=== PATIENT | female | born 1950 | race Two or more races ===

== ENCOUNTER 2017-07-08 06:13 | Observation (INO) | payer MEDICARE, BC ==
[2017-07-06 11:34] LABS: BASOPHILS % 0.3 % (0.0-1.0); HEMATOCRIT 35.9 % (34.2-44.1); HEMOGLOBIN 12.4 g/dL (12.0-16.0); LYMPHOCYTES # (AUTO) 2.6 (1.0-3.2); LYMPHOCYTES % 40.9 % (18.0-39.1); MEAN CORPUSCULAR HEMOGLOBIN 31.4 pg (28-32); MEAN CORPUSCULAR HGB CONC 34.5 g/dL (31-35); MEAN CORPUSCULAR VOLUME 90.9 fL (81-99); MONOCYTES # (AUTO) 0.6 (0.2-0.8); MONOCYTES % 9.9 % (4.4-11.3); NEUTROPHILS # (AUTO) 3.1 (2.1-6.9); NEUTROPHILS % 48.6 % (38.7-80.0); PLATELET COUNT 173 x10e3/uL (140-360); RED BLOOD COUNT 3.95 x10e6/uL (3.6-5.1); RED CELL DISTRIBUTION WIDTH 12.1 % (11.7-14.4)
[2017-07-06 11:50] LABS: INR 1.04; PROTHROMBIN TIME 12.8 seconds (11.9-14.5)
[2017-07-06 11:56] LABS: ANION GAP 12.5 mmol/L (8-16); BLOOD UREA NITROGEN 29 mg/dL (7-26); BUN/CREATININE RATIO 35 (6-25); CALCIUM 9.5 mg/dL (8.4-10.2); CARBON DIOXIDE 26 mmol/L (22-29); CHLORIDE 105 mmol/L (98-107); CREATININE, SERUM 0.83 mg/dL (0.57-1.11); EST GLOMERULAR FILTRATION RATE > 60 ML/MIN (60-); GLUCOSE 89 mg/dL (74-118); POTASSIUM 4.5 mmol/L (3.5-5.1); SODIUM 139 mmol/L (136-145)
--- NOTE | 2017-07-06 12:16 | Diagnostic Imaging Report ---
PROCEDURE:CHEST 2 VIEWS TECHNIQUE:PA and lateral chest INDICATION:Preoperative evaluation for cervical spine surgery. COMPARISON:None. FINDINGS: Lungs are clear and symmetrically inflated. No pleural effusion. Normal heart size, mediastinal contour pulmonary vasculature and skeleton. CONCLUSION: Normal chest. Dictated by: Renny Tellez M.D. on 07/06/2017 at 12:18 Electronically approved by: Renny Tellez M.D. on 07/06/2017 at 12:18
[~2017-07-08] VITALS: Ht 152.4 cm; Wt 62.6 kg
[~2017-07-08 06:13] MED LIST: ADVIL PO; ASPIRIN PO; TYLENOL PO
--- OUTSIDE RECORDS SUMMARY | 2017-07-08 06:16 | XMS REPORT ---
Author Author [facility] Address Unknown Phone Unavailable Care Team Providers Care Refrigerated Cargo Clerk Name Role Phone DESIREE ZAVALA Unavailable Unavailable Problems This patient has no known problems. Allergies, Adverse Reactions, Alerts This patient has no known allergies or adverse reactions. Medications This patient has no known medications. Results Test Description Test Time Test Comments Text Results Atomic Results Result Comments CHEST 2 VIEWS [place] [address] Patient Name: RAJAN LYNNE MR #: [id number] : 1950 Age/Sex: 67/F Req #: [id number] Adm Physician: Ordered by: DESIREE ZAVALA MD Report #: [id number] Location: OR Room/Bed: Procedure: [id number] DX/CHEST 2 VIEWS Exam Date: 07/06/17 Exam Time: 1147 REPORT STATUS: Signed PROCEDURE: CHEST 2 VIEWS TECHNIQUE: PA and lateral chest INDICATION: Preoperative evaluation for cervical spine surgery. COMPARISON: None. FINDINGS: Lungs are clear and symmetrically inflated. No pleural effusion. Normal heart size, mediastinal contour pulmonary vasculature and skeleton. CONCLUSION: Normal chest. Dictated by: Daphne Tellez M.D. on 07/06/2017 at 12: 18 Electronically approved by: Daphne Tellez M.D. on 07/06/2017 at 12:18 Dictated By: DAPHNE TELLEZ MD [id number] Transcribed By: ANNIE on 07/06/17 1218 COPY TO: DESIREE ZAVALA MD
[2017-07-08] MEDS ORDERED: CEFAZOLIN SOD 1 GM VIAL ONE ×2 (07:00→07:34)
[2017-07-08] MEDS ORDERED: THROMBIN FOR SOLN 5,000 UNIT VIAL ONE (07:22)
[2017-07-08] MEDS ORDERED: GELATIN SPONGE SZ 100 ONE (07:22)
[2017-07-08] MEDS ORDERED: BACITRACIN 50,000 UNIT VIAL ONE (07:22)
[2017-07-08] MEDS ORDERED: BUPIVACAINE 0.5%/EPI 30 ML SDV INJ ONE (07:22)
[2017-07-08] MEDS ORDERED: ACETAMINOPHEN 1000 MG/100 ML 100 ML IV ONE (07:29)
[2017-07-08] MEDS ORDERED: LIDOCAINE HCL (LTA) 4 ML SOLN ONE (07:29)
[2017-07-08] MEDS: LACTATED RINGER'S 1,000 ML IV SCH ×3 (09:43→21:36)
[2017-07-08] MEDS ORDERED: HYDROMORPHONE 2MG/ML INJ IV PRN (09:45)
[2017-07-08] MEDS ORDERED: ACETAMINOPHEN 325 MG TAB PO PRN (09:45)
[2017-07-08] MEDS ORDERED: CEPACOL SORE THROAT LOZENGES PO PRN (09:45)
[2017-07-08] MEDS ORDERED: MAGNESIUM/ALUMINUM/SIMETHICONE 30 ML UDC PO PRN (09:45)
[2017-07-08] MEDS ORDERED: CARISOPRODOL 350 MG TAB PO PRN (09:45)
[2017-07-08] MEDS ORDERED: MORPHINE SULFATE 5 MG/ML VIAL IM PRN (09:45)
[2017-07-08] MEDS ORDERED: ZOLPIDEM TARTRATE 5 MG TAB PO PRN (09:45)
[2017-07-08] MEDS ORDERED: PROMETHAZINE HCL (IM) 25 MG/ML VIAL IM PRN (09:45)
[2017-07-08] MEDS ORDERED: FENTANYL CITRATE/PF 100MCG/2 ML INJ ONE ×2 (10:07→18:52)
[2017-07-08] MEDS ORDERED: ONDANSETRON HCL 4 MG ORAL DISINTEGRATING TAB SL PRN (10:15)
[2017-07-08] MEDS: OXYCODONE/ACETAMINOPHEN 5-325 1 EACH TABLET PO PRN (11:15)
--- NOTE | 2017-07-08 11:15 | Operative Report ---
DATE OF PROCEDURE: July 08, 2017 PREOPERATIVE DIAGNOSIS: C5-6 and C6-7 spondylosis with radiculopathy, M50.120. POSTOPERATIVE DIAGNOSIS: C5-6 and C6-7 spondylosis with radiculopathy, M50.120. PROCEDURES: 1. C5-6 anterior cervical diskectomy, microsurgical osteophyte resection and allograft fusion, 71330. 2. C6-7 anterior cervical diskectomy, microsurgical osteophyte resection and allograft fusion, 37727. 3. Preparation of iliac crest allograft, 97525. 4. C5-6 and C6-7 anterior cervical plating with Synthes ZPN plate, 48933. ANESTHESIA: General. INDICATIONS: This patient is a woman who presents with C5-6 and C6-7 spondylosis and right-sided foraminal stenosis with right-sided cervical radiculopathy. She was taken to the operating room for a 2-level anterior cervical decompression and fusion. PROCEDURE: After the induction of anesthesia, the patient was placed on the operating table in supine position. The right side of the neck was prepped and draped in a sterile fashion. The fluoroscopic C-arm was positioned in cross-table lateral orientation. A small transverse incision was created on the right side of the neck superimposed on the C6 vertebral body as determined by fluoroscopy. The platysma was divided in line with the incision. A subplatysmal dissection was carried out. An avascular plane of dissection was developed medial to the sternocleidomastoid muscle and was followed medial to the carotid sheath to the anterior border the cervical spine. The deep cervical fascia was opened. The esophagus was retracted to the left. The attachments of the longus coli muscles to the anterolateral aspects of the vertebral bodies of C5, C6 and C7 were divided. The anterior longitudinal ligament was resected. Ogden posts were inserted into C5 and C7. The Ogden distractor was used to distract both disk spaces. The anterior annuli of the disks were incised with a #11 blade, and the contents of both disks were thoroughly evacuated with angled curets and pituitary rongeurs. The posterior osteophytes were meticulously drilled with a 2-mm cutting bur on a high-speed drill until they were completely removed. The posterior annulus of the disk, herniated disk material and the posterior longitudinal ligament were resected layer by layer until the dura was fully exposed and decompressed. The medial aspects of uncinate processes were resected bilaterally to further expose and decompress the origins of the corresponding nerve roots. After satisfactory decompression had been achieved, the endplates were prepared for fusion. Two pieces of tricortical iliac crest allograft were cut to sizes and shapes of the disk spaces and were inserted into the disk spaces under distraction and fluoroscopic guidance. The distraction was released. The distraction posts were removed. A Synthes CSLP small-stature anterior cervical plate measuring 30 mm was selected and was affixed to the vertebral bodies of C5, C6 and C7 with 3 pairs of 14 x 4.35 mm screws. All screw holes were drilled and tapped under lateral fluoroscopic guidance. All screws were locked with the appropriate locking screws. An excellent construct was obtained. The wound was copiously irrigated with Bacitracin solution. Meticulous hemostasis was secured. Retractor was removed. The platysma was closed with 3-0 Vicryl sutures. The skin was closed 4-0 Monocryl sutures in subcuticular fashion. Steri-Strips and dressing were applied. The patient was awakened and extubated and taken to the postanesthesia care unit in stable condition. No intraoperative complications were encountered. Estimated blood loss was 20 mL. Job#: [id number]
[2017-07-08 11:32] VITALS: BP 147/74
[2017-07-08 11:43] VITALS: BP 147/74
[2017-07-08] MEDS ORDERED: CEFAZOLIN SOD 1 GM/NS 50ML 50 ML IV SCH (14:00)
[2017-07-08 15:43] VITALS: BP 135/74
[2017-07-08] MEDS: CEFAZOLIN SOD 1 GM VIAL IV SCH ×2 (16:21→21:36)
[2017-07-08 16:53] VITALS: BP 135/74
[2017-07-08] MEDS: PROMETHAZINE 25MG/ NS 50ML (IV) IV PRN ×2 (18:10→22:41)
[2017-07-08] MEDS ORDERED: NEOSTIGMINE 5 MG/5ML SYR ONE (18:12)
[2017-07-08] MEDS ORDERED: SEVOFLURANE INHAL SOLN 250 ML PEN BTL ONE (18:12)
[2017-07-08] MEDS ORDERED: EPHEDRINE SULFATE INJ 50 MG/10 ML SYR ONE (18:12)
[2017-07-08] MEDS ORDERED: ACETAMINOPHEN 1000 MG/100 ML IV ONE (18:12)
[2017-07-08] MEDS ORDERED: DEXAMETHASONE SOD PHOS INJ 4 MG/ML VIAL ONE (18:12)
[2017-07-08] MEDS ORDERED: LIDOCAINE HCL 2% JELLY 5 ML TUBE ONE (18:12)
[2017-07-08] MEDS ORDERED: ONDANSETRON HCL INJ 2 MG/ML VIAL ONE (18:12)
[2017-07-08] MEDS ORDERED: LIDOCAINE HCL 2% LOCAL INJ 5 ML SDV VIAL INJ ONE (18:12)
[2017-07-08] MEDS ORDERED: PROPOFOL IV EMULSION 10 MG/ML 20 ML VIAL ONE (18:12)
[2017-07-08] MEDS ORDERED: ROCURONIUM BROMIDE 10 MG/ML 5ML VIAL ONE (18:12)
[2017-07-08] MEDS ORDERED: GLYCOPYRROLATE INJ 1MG/ 5 ML SYR ONE (18:12)
[2017-07-08] MEDS ORDERED: MIDAZOLAM HCL 2 MG/2 ML VIAL ONE (18:52)
[2017-07-08 21:44] VITALS: BP 101/56
[2017-07-08 21:45] VITALS: BP 101/56
[2017-07-09 04:00] VITALS: BP 108/64
[2017-07-09] MEDS: CEFAZOLIN SOD 1 GM VIAL IV SCH (05:08)
[2017-07-09] MEDS: PROMETHAZINE 25MG/ NS 50ML (IV) IV PRN (05:09)
[2017-07-09] MEDS: OXYCODONE/ACETAMINOPHEN 5-325 1 EACH TABLET PO PRN ×2 (06:24→11:26)
[2017-07-09 08:18] VITALS: BP 93/59
[2017-07-09] MEDS: LACTATED RINGER'S 1,000 ML IV SCH (10:43)
[2017-07-09 12:00] VITALS: BP 97/57
== END 2017-07-09 12:52 | disposition home or self-care (01) ==
LOC: OR 06:13 → IMCU 10:08
PROVIDERS: ADMIT Neurological Surgery; ATTEND Neurological Surgery
DX: M50.122 Cervical disc disorder at C5-C6 level with radiculopathy (principal); G56.01 Carpal tunnel syndrome, right upper limb; Z96.651 Presence of right artificial knee joint
CPT/HCPCS: 20931; 22551; 22552; 22845; 36415; 71046; 77003; 80048; 85025; 85610; 85730; 86850; 86900; 88304; 93005; G0378 ×2; J0690 ×2; J1100; J1170; J2001 ×2; J2250; J2405; J2550 ×2; J7120; J2270